=== PATIENT | female | born 1990 | race Caucasian/White ===

== ENCOUNTER 2016-06-24 13:09 | Emergency (ER) | payer OTHER ==
[~2016-06-24] VITALS: Ht 167.6 cm; Wt 76.1 kg
[~2016-06-24 13:09] MED LIST: ADVAIR 250/501 DISK IH; CYCLOBENZAPRINE10 MG PO; DECADRON4 MG PO; FLORINEF ACETA0.1 MG PO; FLUDROCORTISON0.1 M1 PO; FOLIC ACID1 MG PO; HYDROCORTISONE10 MG PO; HYDROCORTISONE5 MG PO; IBUPROFEN800 MG PO; K-DUR20 MEQ PO; LEVOTHROID50 MCG PO; LEVOTHYROXINE112 MCG PO; LEVOTHYROXINE88 MCG PO; MACROBID100 MG PO; METHOTREXA25 MG/1 M4 PO; METHOTREXATE2.5 MG PO; NABUMETONE750 M1 PO; PERCOCET 5/31 TABLET PO; PREDNISOLONE5 MG PO; PREDNISONE20 MG PO; PROTONIX40 MG PO; PROVENTIL,2.5 MG/3 M IH; RANITIDINE HCL150 M1 PO; REGLAN10 MG PO; RITALIN SR, MET20 MG PO; TRAMADOL HCL50 MG PO; TRAZODONE HCL50 MG PO; VENTOLIN HFA18 GM IH; VITAMIN D31000 UNIT PO; ZOFRAN ODT4 MG PO
[2016-06-24 14:17] LABS: MCH 28.6 PG (29.0-34.0); MCHC 33.3 G/DL (30.0-36.0); MCV 85.9 FL (83-99); MEAN PLAT.VOLUME 10.1 uM^3 (9.5-12.4); PLATELET COUNT 214 K/uL (156-360); RBC DIS.WIDTH-CV 13.5 % (11.8-14.6); RBC DIS.WIDTH-SD 42.3 % (39-53); RED BLOOD COUNT 4.89 M/uL (3.80-5.20); WHITE BLOOD COUNT 5.2 K/uL (4.1-10.2)
[2016-06-24 14:23] LABS: ADD MIUA? YES; BILIRUBIN NEGATIVE; BLOOD MODERATE; COLOR YELLOW ((YELLOW)); GLUCOSE (STRIP) NEGATIVE; KETONES NEGATIVE; LEUKOCYTES NEGATIVE; NITRITE NEGATIVE; PROTEIN (STRIP) 30; SPECIFIC GRAVITY 1.021 (1.000-1.030); UROBILINOGEN 0.2 MG/DL (0.2-1.0)
[2016-06-24 14:25] LABS: CHLORIDE 104 mEq/L (99-109); POTASSIUM 3.6 mEq/L (3.7-5.4); SODIUM 139 mEq/L (136-147)
[2016-06-24 14:27] LABS: GLUCOSE 101 mg/dL (70-99)
[2016-06-24 14:29] LABS: ANION GAP 9 MEQ/L (2-14)
[2016-06-24 14:31] LABS: ALKALINE PHOSPHATASE 80 IU/L (3-129); GFR ESTIMATE (CALCULATED) > 59 mL/min/
[2016-06-24 14:32] LABS: UREA NITROGEN (BUN) 15 mg/dL (9-23)
[2016-06-24 14:33] LABS: BACTERIA NONE SEEN /HPF; EPITHELIAL CELLS 1+ /HPF; MUCUS 1+ /LPF; RED BLOOD CELLS TNTC /HPF (0-5); WHITE BLOOD CELLS 0-5 /HPF (0-5)
[2016-06-24 14:34] LABS: LIPASE 31 U/L (1.0-51.0)
[2016-06-24 14:40] LABS: QUANTITATIVE HCG < 4.0 MIU/ML
[2016-06-24] MEDS ORDERED: ZOFRAN ODT4 MG PO (17:05)
[2016-06-24] MEDS ORDERED: ULTRAM50 MG PO (17:05)
[2016-06-24] MEDS ORDERED: MIRALAX255 GM PO (17:07)
[2016-06-24 17:45] VITALS: BP 101/53
== END 2016-06-24 17:46 | disposition home or self-care (01) ==
LOC: EME 13:09
PROVIDERS: Nurse Practitioner Family
DX: E27.2 Addisonian crisis (principal); R11.2 Nausea with vomiting, unspecified; R50.9 Fever, unspecified; K59.00 Constipation, unspecified; M54.9 Dorsalgia, unspecified; G89.29 Other chronic pain; J45.909 Unspecified asthma, uncomplicated; M06.9 Rheumatoid arthritis, unspecified; E06.3 Autoimmune thyroiditis
CPT/HCPCS: 80053; 81003; 82024 90; 83690; 84702; 85027; 99281; 99284; J1100; J2270; J2405; J7030

== ENCOUNTER 2016-11-27 15:54 | Emergency (ER) | payer OTHER ==
[~2016-11-27] VITALS: Ht 167.6 cm; Wt 75.0 kg
[~2016-11-27 15:54] MED LIST changes: +MIRALAX255 GM PO; +ULTRAM50 MG PO
[2016-11-27 16:38] LABS: MCH 28.1 PG (29.0-34.0); MCHC 32.7 G/DL (30.0-36.0); MEAN PLAT.VOLUME 9.8 uM^3 (9.5-12.4); PLATELET COUNT 228 K/uL (156-360); RBC DIS.WIDTH-CV 12.2 % (11.8-14.6); RBC DIS.WIDTH-SD 38.4 % (39-53); WHITE BLOOD COUNT 7.4 K/uL (4.1-10.2)
[2016-11-27 17:07] LABS: CHLORIDE 108 mEq/L (99-109); POTASSIUM 4.3 mEq/L (3.7-5.4); SODIUM 141 mEq/L (136-147)
[2016-11-27 17:10] LABS: GLUCOSE 89 mg/dL (70-99)
[2016-11-27 17:11] LABS: ANION GAP 7 MEQ/L (2-14); TOTAL BILIRUBIN 0.3 mg/dL (0.0-1.0)
[2016-11-27 17:13] LABS: ALKALINE PHOSPHATASE 55 IU/L (3-129); GFR ESTIMATE (CALCULATED) > 59 mL/min/
[2016-11-27 17:14] LABS: UREA NITROGEN (BUN) 13 mg/dL (9-23)
[2016-11-27 17:24] LABS: QUANTITATIVE HCG < 4.0 MIU/ML
[2016-11-27 19:27] LABS: ADD MIUA? YES; BILIRUBIN NEGATIVE; BLOOD NEGATIVE; COLOR YELLOW ((YELLOW)); GLUCOSE (STRIP) NEGATIVE; KETONES NEGATIVE; LEUKOCYTES SMALL; NITRITE NEGATIVE; PROTEIN (STRIP) NEGATIVE; SPECIFIC GRAVITY 1.008 (1.000-1.030); UROBILINOGEN 0.2 MG/DL (0.2-1.0)
[2016-11-27 19:32] LABS: BACTERIA RARE /HPF; EPITHELIAL CELLS 3+ /HPF; MUCUS TRACE /LPF; RED BLOOD CELLS 0-5 /HPF (0-5); UCUL ADDED? NO; WHITE BLOOD CELLS 0-5 /HPF (0-5)
[2016-11-27] MEDS ORDERED: FIORICET 50-301 EACH PO (20:16)
[2016-11-27 20:37] VITALS: BP 121/77
== END 2016-11-27 20:38 | disposition home or self-care (01) ==
LOC: EME 15:54
DX: G43.009 Migraine without aura, not intractable, without status migrainosus (principal); E27.1 Primary adrenocortical insufficiency; E06.3 Autoimmune thyroiditis; Z87.440 Personal history of urinary (tract) infections; J45.909 Unspecified asthma, uncomplicated; M06.9 Rheumatoid arthritis, unspecified
CPT/HCPCS: 80053; 81003; 84702; 85027; 99281; 99284; J1200; J1885; J2765; J7030

== ENCOUNTER 2017-09-19 10:40 | Day surgery (SDC) | payer OTHER ==
[~2017-09-19] VITALS: Ht 170.2 cm; Wt 74.4 kg
[~2017-09-19 10:40] MED LIST changes: +CORTEF5 M1 PO; +DEXAMETHASO4 MG/1 ML IM; +FIORICET 50-301 EACH PO; +FIORICET,ESG1 TABLET PO; -HYDROCORTISONE10 MG PO; -LEVOTHYROXINE88 MCG PO; +MIRENA1 EACH IY; +MOBIC15 MG PO; +MULTIPLE VITAM1 EAC4 PO; +PROBIOTIC1 EAC2 PO; +PROMETHAZINE HC25 M1 PO; +STOOL SOFTENER100 M1 PO; +SYNTHROID75 MCG PO; -VITAMIN D31000 UNIT PO; +VITAMIN D32000 UNI1 PO; +ZANTAC150 MG PO
== END 2017-09-19 11:30 | disposition home or self-care (01) ==
LOC: PAIN 10:40
PROVIDERS: Anesthesiology Pain Medicine
DX: M47.816 Spondylosis without myelopathy or radiculopathy, lumbar region (principal); M47.814 Spondylosis without myelopathy or radiculopathy, thoracic region; M79.1 Myalgia; G89.29 Other chronic pain; E03.9 Hypothyroidism, unspecified; J45.909 Unspecified asthma, uncomplicated; E06.3 Autoimmune thyroiditis; Z79.891 Long term (current) use of opiate analgesic; Z91.040 Latex allergy status
CPT/HCPCS: 81025; 84132; J1030; J1885; J2250; S0020

== ENCOUNTER 2017-09-26 08:53 | Day surgery (SDC) | payer OTHER ==
[~2017-09-26] VITALS: Ht 170.2 cm; Wt 74.4 kg
== END 2017-09-26 10:53 | disposition home or self-care (01) ==
LOC: PAIN 08:53 → SDC 09:15 → PAIN 10:53
DX: M47.816 Spondylosis without myelopathy or radiculopathy, lumbar region (principal); M51.36 Other intervertebral disc degeneration, lumbar region; G89.29 Other chronic pain; M54.12 Radiculopathy, cervical region; E66.01 Morbid (severe) obesity due to excess calories; Z87.891 Personal history of nicotine dependence
CPT/HCPCS: J1030; J2250; S0020